=== PATIENT | female | born 1940 | race Caucasian/White ===

== ENCOUNTER → 2019-04-17 | Outpatient (CLI) | payer MEDICARE, SELFPAY | END | disposition home or self-care (01) | PROVIDERS: Family Provider Family Medicine; PCP Family Medicine; Referring Provider Otolaryngology; Visit Provider Otolaryngology | DX: J32.9 Chronic sinusitis, unspecified (principal) | CPT/HCPCS: 87070; 87077; 87186; 87205 ==

== ENCOUNTER → 2019-07-25 | Outpatient (CLI) | payer MEDICARE, OTHER, SELFPAY ==
--- NOTE | 2019-07-25 15:50 | NEURO ---
NCS and/or EMG Patient Report Ordering Doctor: Grady Otoole DATE OF SERVICE: 07/25/19 Venita Nuñez is an 79 year old female who presents for electrodiagnostic testing of the lower limbs. Reports paresthesias in both legs. Electrodiagnostic findings: Left peroneal motor nerve demonstrates normal distal latency with reduced amplitude and normal conduction velocity. Normal left tibial motor response. Normal left tibial and peroneal F wave. Right peroneal motor nerve demonstrates normal distal latency with reduced amplitude and normal conduction velocity. Prolonged right tibial motor latency with reduced amplitude. Prolonged sural latency bilaterally. Absent medial plantar response bilaterally. Prolonged H reflex bilaterally. On needle EMG, all muscles tested in the lower limbs as well as lumbar paraspinal showed no evidence of denervation with normal motor unit action potentials. Electrodiagnostic impression: This is an abnormal study. 1. 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 2. There is no electrodiagnostic evidence for lumbosacral radiculopathy. If there are any further questions, please do not hesitate to contact me
== END | disposition home or self-care (01) ==
LOC: PSN 06:17
PROVIDERS: Family Provider Internal Medicine; PCP Internal Medicine; Referring Provider Internal Medicine; Visit Provider Internal Medicine
DX: R20.0 Anesthesia of skin (principal)
CPT/HCPCS: 95886; 95912